=== PATIENT | female | born 1955 | race Caucasian/White ===

== ENCOUNTER 2017-07-26 18:26 | Emergency (ER) | payer OTHER ==
[~2017-07-26] VITALS: Ht 157.5 cm; Wt 80.3 kg
[~2017-07-26 18:26] MED LIST: ASPI-664 PO; CALC1TAB80 PO; MTF1000T PO; ONDA4TAB35 PO; SITA100T8 PO; TRAM50TA2 PO
[2017-07-26 18:47] VITALS: Ht 157.5 cm; Wt 80.3 kg
[2017-07-26] MEDS ORDERED: IPRATROPIUM (NEB) 0.5 MG/2.5 ML AMP NEB STA (19:13)
[2017-07-26] MEDS ORDERED: METHYLPREDNISOLONE 125 MG INJ IM STA (19:13)
[2017-07-26] MEDS ORDERED: ALBUTEROL 0.083% (NEB) 2.5 MG/3 ML AMP NEB STA (19:13)
--- NOTE | 2017-07-26 19:20 | ERD ---
ER Documentation Chief Complaint Chief Complaint sob x3 days. hx asthma. inhaler ineffective. HPI 61-year-old female presents here to emergency department for complaints of cough shortness of breath and wheezing for the last 2 weeks, worse in the last few days. Patient has history of asthma, has been taking her inhaler with only mild relief. Patient did not have any fever chills. Patient denies any chest pain or palpitations. Patient denies any dizziness. Patient denies any dyspnea on exertion or dyspnea on lying down. ROS All systems reviewed and are negative except as per history of present illness. Medications Home Meds Active Scripts Ondansetron Hcl* (Zofran* ODT) 4 mg -ODT Tab.disper, 4 MG PO Q6 Y for NAUSEA AND /OR VOMITING, #10 TAB Prov:RENUKA WILKES. 04/02/16 Tramadol HCl (Tramadol HCl) 50 Mg Tablet, 50 MG PO Q4 Y for PAIN, #20 TAB Prov:RENUKA WILKES 04/02/16 Reported Medications Calcium Carbonate/Vitamin D3 (Oysco 500+D Tablet) 1 Tab Tablet, 1 TAB PO DAILY, TAB 04/02/16 Aspirin* (Aspirin* EC) 81 Mg Tablet.dr, 81 MG PO DAILY, TAB 04/02/16 Sitagliptin* (Januvia*) 100 Mg Tablet, 100 MG PO QHS, #30 TAB 04/02/16 Metformin* (Glucophage*) 1,000 Mg Tablet, 1000 MG PO BID, #60 TAB 04/02/16 Allergies Allergies: Coded Allergies: No Known Allergy (Unverified , 07/26/17) PMhx/Soc Hx Respiratory Disorders: Yes (asthma) Hx Psychiatric Problems: No Hx Miscellaneous Medical Probl: Yes (sinus problems, dm2) Hx Alcohol Use: No Hx Substance Use: No Hx Tobacco Use: No Smoking Status: Never smoker FmHx Family History: No coronary disease, No diabetes, No other Physical Exam Vitals Vital Signs Date Time Temp Pulse Resp B/P Pulse Ox O2 Delivery O2 Flow Rate FiO2 07/26/17 21:22 98.7 75 16 139/68 98 Room Air 07/26/17 20:50 72 20 97 21 07/26/17 19:35 70 20 98 21 07/26/17 18:47 99.5 82 28 143/78 98 Physical Exam GENERAL: The patient is well developed and appropriate for usual state of health, in no apparent distress. CHEST: Diffuse wheezing noted bilaterally. There are no rales, crackles or rhonchi. HEART: Regular rate and rhythm. No murmurs, clicks, rubs or gallops. No S3 or S4. ABDOMEN: Soft, nontender and nondistended. Good bowel sounds. No rebound or guarding. No gross peritonitis. No gross organomegaly or masses. No Sethi sign or McBurney point tenderness. BACK: No midline or flank tenderness. EXTREMITIES: Equal pulses bilaterally. There is no peripheral clubbing, cyanosis or edema. No focal swelling or erythema. Full range of motion. Grossly neurovascularly intact. NEURO: Alert and oriented. Cranial nerves 2-12 intact. Motor strength in all 4 extremities with 5/5 strength. Sensation grossly intact. Normal speech and gait. SKIN: There is no apparent rash or petechia. The skin is warm and dry. HEMATOLOGIC AND LYMPHATIC: There is no evidence of excessive bruising or lymphedema. No gross cervical, axillary, or inguinal lymphadenopathy. Results 24 hrs Current Medications Medications (Trade) Dose Ordered Sig/Joelle Route PRN Reason Start Time Stop Time Status Last Admin Dose Admin Albuterol (Proventil 0.083% (Neb)) 5 mg ONCE STAT NEB 07/26/17 19:13 07/26/17 19:17 DC 07/26/17 19:35 Ipratropium [place] (Atrovent 0.02% (Neb)) 0.5 mg ONCE STAT NEB 07/26/17 19:13 07/26/17 19:17 DC 07/26/17 19:35 Methylprednisolone Sodium Succinate (Solu-Medrol) 125 mg ONCE STAT IM 07/26/17 19:13 07/26/17 19:17 DC 07/26/17 19:24 Ceftriaxone Sodium (Rocephin) 1 gm ONCE ONCE IM 07/26/17 21:00 07/26/17 21:01 DC 07/26/17 20:42 Albuterol (Proventil 0.083% (Neb)) 1.25 mg ONCE STAT N 07/26/17 20:33 07/26/17 20:37 DC 07/26/17 20:49 Ipratropium [place] (Atrovent 0.02% (Neb)) 0.5 mg ONCE ONCE [facility] 07/26/17 21:00 07/26/17 21:01 DC 07/26/17 20:49 Breathing treatment of albuterol and Atrovent Solu-Medrol IM was given here in emergency department, after treatment, patient's lungs sounds are clear and patient's oxygenation is better. Patient verbalized feeling much better. IM Rocephin was given here in emergency department. Tolerated procedure well. PROCEDURE: Portable chest x-ray. CLINICAL INDICATION: Asthma exacerbation. TECHNIQUE: Portable AP view of the chest. COMPARISON: None. FINDINGS: There is focal opacity at the left lung base. The right lung is clear. The cardiac silhouette is magnified. No pleural effusion is seen. There is no pneumothorax. IMPRESSION: 1. Focal opacity at the left lung base, possibly representing atelectasis or pneumonia. RPTAT: HTAR .Alberto Goldberg MD, MD Date Time Electronically viewed and signed by .Alberto Goldberg MD, MD on 07/26/2017 20:20 .R/ CC: NAVYA RICHARDSON NETWORK COORDINATOR Procedures/MDM Medical Decision Making: Patient symptoms are most likely consistent with acute asthma exacerbation with pneumonia. Outpatient management is appropriate at this time since patient doesnt show any respiratory distress. Patients chest xray doesnt show infiltrates or any other cardiopulmonary emergencies at this time. There is low suspicion for other cardiopulmonary emergencies at this time such as CHF, Pulmonary Embolism, Pneumothorax, Aortic Aneurysm or any other cardiopulmonary emergencies at this time. There is low suspicion for sepsis. Patient appears well and is hemodynamically stable. Patient does not have any fever. Disposition: Home. Condition: Stable Prescriptions: Levaquin, guaifenesin with codeine Zyrtec ibuprofen albuterol prednisone Instructions: Patient is advised to take medications as prescribed. Patient is advised to rest. Patient advised to increase fluid intake, do humidifier at home and if possible, do salt water gargles. Patient is advised that if symptoms are worse, shortness of breath, uncontrolled fever, stridor, vomiting, worst signs and symptoms to return to emergency department immediately. Otherwise, patient is advised to follow up with primary doctor in 5-7 days. Disclaimer: Inadvertent spelling and grammatical errors are likely due to EHR/ dictation software use and do not reflect on the overall quality of patient care. Also, please note that the electronic time recorded on this note does not necessarily reflect the actual time of the patient encounter. Departure Diagnosis: Primary Impression: Asthma with acute exacerbation Asthma severity: unspecified severity Asthma persistence: unspecified Qualified Code: J45.901 - Asthma with acute exacerbation, unspecified asthma severity, unspecified whether persistent Additional Impression: Pneumonia Pneumonia type: due to unspecified organism Laterality: left Lung location : lower lobe of lung Qualified Code: J18.1 - Pneumonia of left lower lobe due to infectious organism Condition: Stable Patient Instructions: Asthma, Acute (Adult), Pneumonia Additional Instructions: Patient is advised to take medications as prescribed. Patient is advised to rest. Patient advised to increase fluid intake, do humidifier at home and if possible, do salt water gargles. Patient is advised that if symptoms are worse, shortness of breath, uncontrolled fever, stridor, vomiting, worst signs and symptoms to return to emergency department immediately. Otherwise, patient is advised to follow up with primary doctor in 5-7 days. NAVYA RICHARDSON NP Jul 26, 2017 19:20
--- NOTE | 2017-07-26 20:21 | RADRPT ---
PROCEDURE: Portable chest x-ray. CLINICAL INDICATION: Asthma exacerbation. TECHNIQUE: Portable AP view of the chest. COMPARISON: None. FINDINGS: There is focal opacity at the left lung base. The right lung is clear. The cardiac silhouette is ma gnified. No pleural effusion is seen. There is no pneumothorax. IMPRESSION: 1. Focal opacity at the left lung base, possibly representing atelectasis or pneumonia. RPTAT: HTAR .Alberto Goldberg MD, MD Date Time Electronically viewed and signed by .Alberto Goldberg MD, on 07/26/2017 20:20 .R/
[2017-07-26] MEDS ORDERED: ALBUTEROL 0.083% (NEB) 2.5 MG/3 ML AMP HHN STA (20:33)
[2017-07-26] MEDS ORDERED: CEFTRIAXONE 1 GM INJ IM ONE (21:00)
[2017-07-26] MEDS ORDERED: IPRATROPIUM (NEB) 0.5 MG/2.5 ML AMP HHN ONE (21:00)
[2017-07-26 21:22] VITALS: BP 139/68; PULSE 75; RESP 16; TEMP 98.7
[2017-07-26] MEDS ORDERED: LEVO750T25 PO (21:54)
[2017-07-26] MEDS ORDERED: GUAI473L22 PO (21:54)
[2017-07-26] MEDS ORDERED: PRED50TA PO (21:54)
[2017-07-26] MEDS ORDERED: CETI10CA PO (21:54)
[2017-07-26] MEDS ORDERED: ALBU8.5H3 INH (21:54)
[2017-07-26] MEDS ORDERED: IBUP-1542 PO (21:54)
== END 2017-07-26 22:05 | disposition home or self-care (01) ==
LOC: FTE 18:26
DX: J45.901 Unspecified asthma with (acute) exacerbation (principal); J18.1 Lobar pneumonia, unspecified organism; E11.9 Type 2 diabetes mellitus without complications; Z79.82 Long term (current) use of aspirin; Z79.84 Long term (current) use of oral hypoglycemic drugs
CPT/HCPCS: 71010; 94640; 94664; 96372; J0696; J2930; Z7502; Z7610

== ENCOUNTER 2017-09-14 18:21 | Emergency (ER) | END 2017-09-14 23:59 | disposition home or self-care (01) ==

== ENCOUNTER 2017-10-24 09:10 | Emergency (ER) | END 2017-10-24 12:10 | disposition home or self-care (01) ==

== ENCOUNTER 2017-11-27 16:47 | Emergency (ER) | END 2017-11-27 23:42 | disposition home or self-care (01) ==

== ENCOUNTER 2018-08-09 19:42 | Emergency (ER) | payer OTHER ==
[~2018-08-09] VITALS: Ht 162.6 cm; Wt 80.0 kg
[~2018-08-09 19:42] MED LIST changes: +ALBU18HF INHALATION; +ALBU8.5H8 INH; -ASPI-664 PO; +ASPI-817 PO; +CETI10CA PO; +D-ME473S2 PO; +FAMO-96 PO; +FLOV110 INHALATION; +FLUT9.9S NASAL; +GUAI473L22 PO; +IBUP-1542 PO; +LEVO750T25 PO; +MONT10TA24 PO; +NAPR-985 PO; +PRED50TA PO; +SITA100T11 PO; -SITA100T8 PO
[2018-08-09 20:48] VITALS: BP 139/77; RESP 24; Ht 162.6 cm; Wt 80.0 kg
[2018-08-09] MEDS ORDERED: ALBUTEROL 0.083% (NEB) 2.5 MG/3 ML AMP HHN STA (21:38)
[2018-08-09] MEDS ORDERED: IPRATROPIUM (NEB) 0.5 MG/2.5 ML AMP HHN ONE (22:00)
[2018-08-09] MEDS ORDERED: GUAI-637 PO (22:50)
[2018-08-09] MEDS ORDERED: SODI126M NASAL (22:50)
[2018-08-09 23:04] VITALS: PULSE 76
--- NOTE | 2018-08-10 02:07 | ERD ---
ER Documentation Chief Complaint Chief Complaint ASTHMA EXASCERBTION WITH FLU-LIKE SYMTPOMS HPI 62-year-old female with history of asthma complaining of shortness of breath times 1 day. Patient states that she had a cough for a week, and reports subjective fever but did not check temperature at home. Cough is nonproductive. She used albuterol inhaler without improvement of her shortness of breath. Denies chest pain. Denies abdominal pain, vomiting, or diarrhea. ROS All systems reviewed and are negative except as per history of present illness. Medications Home Meds Active Scripts Sodium Chloride (Saline Nasal Mist) 126 Ml Mist, 2 SPRAY NASAL Q2H PRN for NASAL CONGESTION, #1 BOTTLE Prov:DILEEP ROBERT. LILY 08/09/18 Guaifenesin* (Robitussin*) 100 Mg/5 Ml Syrup, 200 MG PO Q4H PRN for COUGH, #120 ML Prov:DILEEP ROBERT. LILY 08/09/18 Famotidine* (Pepcid*) 20 Mg Tablet, 20 MG PO BID for 14 Days, TAB Prov:ROBERTO MORALES MD 11/27/17 Fluticasone Propionate (Flonase Allergy Relief) 9.9 Ml [place].susp, 2 SPRAY NASAL DAILY, #1 BOTTLE TO EACH NOSTRIL Prov:SHANNEN ANDERSON PA-C 10/24/17 Dextromethorphan Hb-Promethazine Hcl* (Promethazine DM* Syrup) 473 Ml Syrup, 5 ML PO Q6 PRN for COUGH for 5 Days, ML Prov:SHANNEN ANDERSON PA-C 10/24/17 Montelukast Sodium* (Montelukast Sodium*) 10 Mg Tablet, 10 MG PO QHS, #30 TAB Prov:SHANNEN ANDERSON PA-C 10/24/17 Fluticasone Propionate* (Flovent* HFA 110) 12 Gm [place], 2 PUFF INHALATION BID, #1 INHALER Prov:SHANNEN ANDERSON PA-C 10/24/17 Albuterol Sulfate* (Ventolin HFA*) 18 Gm Hfa.aer.ad, 2 PUFF INHALATION Q6H, #1 INHALER Prov:SHANNEN ANDERSON PA-C 10/24/17 Fluticasone Propionate (Flonase Allergy Relief) 9.9 Ml [place].susp, 2 SPRAY NASAL DAILY, #1 BOTTLE TO EACH NOSTRIL Prov:SHANNEN ANDERSONC 09/14/17 Cetirizine Hcl* (Zyrtec*) 10 Mg Capsule, 10 MG PO DAILY, #14 TAB.CHEW Prov:SHANNEN ANDERSONC 09/14/17 Naproxen* (Naprosyn*) 500 Mg Tablet, 500 MG PO BID PRN for PAIN AND/OR INFLAMMATION, #30 TAB Prov:SHANNEN ANDERSONC 09/14/17 Tramadol HCl (Tramadol HCl) 50 Mg Tablet, 50 MG PO Q4 PRN for PAIN, #20 TAB Prov:SHANNEN ANDERSON PA-C 09/14/17 Ibuprofen* (Motrin*) 600 Mg Tab, 600 MG PO Q6H PRN for PAIN AND OR ELEVATED TEMP, #30 TAB Prov:NAVYA RICHARDSON NP 07/26/17 Prednisone* (Prednisone*) 50 Mg Tablet, 50 MG PO DAILY for 5 Days, TAB Prov:NAVYA RICHARDSON NP 07/26/17 Albuterol Sulfate* (Proair HFA*) 8.5 Gm Hfa.aer.ad, 2 PUFF INH Q4H PRN for WHEEZING AND SOB, #1 INHALER Prov:NAVYA RICHARDSNO NP 07/26/17 Levofloxacin* (Levaquin*) 750 Mg Tablet, 750 MG PO DAILY for 5 Days, TAB Prov:NAVYA RICHARDSON NP 07/26/17 Cetirizine Hcl* (Zyrtec*) 10 Mg Capsule, 10 MG PO DAILY, #30 TAB.CHEW Prov:NAVYA RICHARDSON NP 07/26/17 Guaifenesin-Codeine Phosphate* (Guaifenesin* AC Cough Syrup) 473 Ml Liquid, 10 ML PO Q4H PRN for COUGH, #120 ML Prov:NAVYA RICHARDSON NP 07/26/17 Ondansetron Hcl* (Zofran* ODT) 4 mg -ODT Tab.disper, 4 MG PO Q6 PRN for NAUSEA AND/OR VOMITING, #10 TAB Prov:RENUKA WILKES. 04/02/16 Tramadol HCl (Tramadol HCl) 50 Mg Tablet, 50 MG PO Q4 PRN for PAIN, #20 TAB Prov:RENUKA WILKES. 04/02/16 Reported Medications Calcium Carbonate/Vitamin D3 (Oysco 500+D Tablet) 1 Tab Tablet, 1 TAB PO DAILY, TAB 04/02/16 Aspirin* (Aspirin* EC) 81 Mg Tablet.dr, 81 MG PO DAILY, TAB 04/02/16 Sitagliptin* (Januvia*) 100 Mg Tablet, 100 MG PO QHS, #30 TAB 04/02/16 Metformin* (Glucophage*) 1,000 Mg Tablet, 1000 MG PO BID, #60 TAB 04/02/16 Allergies Allergies: Coded Allergies: No Known Allergy (Unverified , 07/26/17) PMhx/Soc Hx Respiratory Disorders: Yes (ASTHMA) Hx Psychiatric Problems: No Hx Miscellaneous Medical Probl: Yes (sinus problems, dm2) Hx Alcohol Use: No Hx Substance Use: No Hx Tobacco Use: No Smoking Status: Never smoker Physical Exam Vitals Vital Signs Date Temp Pulse Resp B/P (MAP) Pulse Ox O2 O2 Flow FiO2 Time Delivery Rate 08/09/18 76 97 Room Air 23:04 08/09/18 78 20 99 21 22:10 08/09/18 99.9 99 24 139/77 98 20:48 (97) Physical Exam General: Well-developed, well-nourished, conscious and coherent, in no distress Skin: Warm and dry without rash, good texture and turgor Head: Normocephalic without evidence of trauma Nose/Face: Clear rhinorrhea Mouth/throat: Mucous membranes are moist. Posterior pharynx clear without erythema or exudates Chest: Normal AP diameter. Good expansion without retractions. Nontender. Lungs are clear to auscultate bilaterally with good tidal volume. Patient exhibits apparent work of breathing. Heart: Regular rate and rhythm. No murmur, rub, or gallops heard Abdomen: Soft and nontender without masses, guarding, or rebound. Bowel sounds are active. No hepatosplenomegaly Extremities: Full range of motion. Good strength bilaterally. No erythema, ecchymosis, or edema. Peripheral pulses are intact. Sensation intact Neuro: Alert and oriented 4, GCS 15. Cranial nerves grossly intact. Moves all extremities. Speech clear. Gait normal Results 24 hrs Current Medications Medications Dose Sig/Joelle Start Time Status Last (Trade) Ordered Route PRN Stop Time Admin Dose Reason Admin Albuterol 2.5 mg ONCE STAT 08/09/18 DC 08/09/18 (Proventil HHN 21:38 22:11 0.083% (Neb)) 08/09/18 21:40 Ipratropium 0.5 mg ONCE ONCE 08/09/18 DC 08/09/18 [place] HHN 22:00 22:11 (Atrovent 08/09/18 0.02% 22:01 (Neb)) Procedures/MDM 62-year-old female with history of asthma presented to ED with shortness of marjorie th. On exam, her lungs are clear with good tidal volumes and without wheezing. However, patient exhibited work of breathing despite her O2 sat at 98%. She is given a nebulizer treatment with 2.5 mg albuterol and 0.5 mg Atrovent. Her work of breathing improved after nebulizer treatment, and her lungs remained clear. The respiratory therapist who examined her feels that patient was trying to hold her breaths to prevent coughing. At this time, patient does not have any respiratory distress, suitable for outpatient management. Patient is afebrile, in no respiratory distress. Lungs are clear to auscultate. I doubt that patient has pneumonia or bronchitis. Likely patient's symptoms are result of viral upper respiratory infection. Medical decision making shared with patient and family. Education provided to patient and family. Patient and family expressed understanding of the plan. Medications on discharge: Saline nasal spray, Robitussin Follow-up: Primary care provider in 2-3 days or return to ED if worse. Disclaimer: Inadvertent spelling and grammatical errors are likely due to EHR/dictation software use and do not reflect on the overall quality of patient care. Also, please note that the electronic time recorded on this note does not necessarily reflect the actual time of the patient encounter. Departure Diagnosis: Primary Impression: Cough Additional Impression: URI (upper respiratory infection) URI type: acute nasopharyngitis (common cold) Qualified Codes: J00 - Acute nasopharyngitis [common cold] Condition: Stable Patient Instructions: Adult Self-Care for Colds [facility] Nick tonyho un examen mdico de control que le indica que no est en suri condicin que requiera tratamiento urgente en el Departamento de Emergencia. Un estudio ms profundo y el tratamiento de campbell condicin pueden esperar sin ningn riesgo hasta que usted sea atendida/o en el consultorio de campbell mdico o suri clnica. Es responsabilidad suya arreglar suri yamilex para el seguimiento del christiano. MANEJO DE CONDICIONES NO URGENTES EN EL FUTURO 1) Si usted tiene un mdico de atencin primaria: Usted debera llamar a campbell mdico de atencin primaria antes de venir al departamento de emergencia. Despus de las horas de consultorio, campbell doctor o campbell asociado/a est disponible por telfono. El mdico o enfermero de shar en el servicio telefnico puede asesorarle por richard medio para atender el problema, o christiano contrario se puede programar suri yamilex. 2) Si usted no tiene un mdico de atencin primaria: Llame al mdico o clnica de referencia que aparece abajo placido las horas de consultorio para hacer suri yamilex para que le vean. CLINICAS: [facility] [phone] [facility] [phone] [facility]. [facility] [phone] [facility]. [facility] [phone] [facility]. [place] [phone] [facility]. [phone] [address] Additional Instructions: Llame al doctor MAANA y karsten suri YAMILEX PARA DENTRO DE 2-3 PINZON.Dgale a la secretaria que nosotros le instruimos hacer esta yamilex.Avise o llame si campbell condicin se empeora antes de la aymilex. Regresa aqui si peor o no mejor. DILEEP ROBERT. LILY Aug 10, 2018 02:07
== END 2018-08-09 23:05 | disposition home or self-care (01) ==
LOC: FTE 19:42
DX: J00 Acute nasopharyngitis [common cold] (principal); J45.901 Unspecified asthma with (acute) exacerbation; E11.9 Type 2 diabetes mellitus without complications; Z79.82 Long term (current) use of aspirin; Z79.84 Long term (current) use of oral hypoglycemic drugs
CPT/HCPCS: 94664; Z7502; Z7610